=== PATIENT | female | born 1950 | race Native Hawaiian/Other Pacific Islander ===

== ENCOUNTER 2017-11-04 10:42 | Day surgery (SDC) | payer OTHER ==
[2017-10-31 09:01] VITALS: BMI 26.4
[2017-11-04] MEDS ORDERED: Propofol 10 mg/ml Inj (20 ML) ONE (13:30)
[2017-11-04] MEDS ORDERED: Midazolam 2 MG/2 ML VIAL ONE (13:30)
[2017-11-04] MEDS ORDERED: Lidocaine Hydrochloride 5 ML INJ ONE (13:32)
[2017-11-04 17:49] VITALS: BP 132/60; PULSE 73; RESP 20; TEMP 97.8; O2SAT 98
--- NOTE | 2017-11-14 08:05 | OP ---
PROCEDURE DATE: 11/04/2017 PREOPERATIVE DIAGNOSES: Postmenopausal bleeding with a questionable lesion noted within the endometrial cavity on ultrasound. POSTOPERATIVE DIAGNOSES: Postmenopausal bleeding, atrophic endometrium, and endometrial polyp. PROCEDURE: Hysteroscopic polypectomy with dilation and sharp curettage. SURGEON: Racheal Agarwal MD ANESTHESIA: General endotracheal. HYSTEROSCOPIC MEDIA USED: Lactated Ringers and a 400 mL fluid deficit was noted. COMPLICATIONS: None. SPECIMEN SENT TO PATHOLOGY: Endometrial polyp and endometrial curettings. DESTINATION: The patient returned to recovery room in satisfactory condition. INDICATIONS: The patient is a postmenopausal female who presented to the office with complaints of postmenopausal spotting. Evaluation included a hysterosonogram which showed a lesion noted within the endometrium. She presents today for management of her postmenopausal bleeding. An informed consent was obtained for the hysteroscopy, possible polypectomy, and dilation and sharp curettage. Risks, benefits and indications were discussed with the patient and she agreed with the planned procedure. Of note, the patient had placed two pills of ____ each 200 mcg the night prior to presentation for the procedure. PROCEDURE: The patient was taken to the operating room. She was placed in a dorsal supine position and underwent general anesthesia without complications. She was then placed in the dorsal lithotomy position using [place] leg stirrups. An exam under anesthesia showed uterus noted to be mid position. No adnexal masses or pelvic masses were noted. A weighted speculum was placed into the vagina and a curved [place] was placed anteriorly and the cervix was grasped with a single-tooth tenaculum. The cervical os was stenotic and was dilated with Hegar dilators. Following adequate dilation, the hysteroscope for the MyoSure use was placed into the cervix and the endometrial cavity was visualized. Bilateral ostia were noted. A whitish colored endometrial polyp was noted to be coming from the anterior uterine wall and extending down. The polyp appeared to be about 4 to 5 mm in length. The endometrium was otherwise completely atrophic and a smooth white uterine colored wall was noted. The Myosure instrument was then used and placed inferior to the polyp with the blade facing the polyp. Polypectomy was then performed with the MyoSure LITE. Following the polypectomy, good hemostasis was confirmed. This was followed by sharp curettage of the endometrium. Of note, the hysteroscopic media as stated earlier was lactated Ringers. The hysteroscope was removed followed by removal of the tenaculum along the anterior lip of the cervix. Good hemostasis was noted. Instrument and sponge counts were correct and the patient returned to recovery room in satisfactory condition. Racheal Agarwal MD
== END 2017-11-04 17:40 | disposition home or self-care (01) ==
LOC: C.SDS 10:42
PROVIDERS: ATTEND Obstetrics & Gynecology
DX: N95.0 Postmenopausal bleeding (principal); Z79.84 Long term (current) use of oral hypoglycemic drugs; M19.90 Unspecified osteoarthritis, unspecified site; E11.9 Type 2 diabetes mellitus without complications; E78.5 Hyperlipidemia, unspecified; I10 Essential (primary) hypertension; N84.0 Polyp of corpus uteri; M54.9 Dorsalgia, unspecified
CPT/HCPCS: 58558; 82948; 88305; J2250; J2704; J3010